=== PATIENT | female | born 1965 | race Asian ===

== ENCOUNTER 2022-11-26 15:42 | Emergency (ER) | payer BC ==
[~2022-11-26] VITALS: Ht 170.2 cm; Wt 54.4 kg
[2022-11-26 17:37] VITALS: BP 110/60
== END 2022-11-26 17:38 | disposition home or self-care (01) ==
LOC: ER 15:42
DX: S90.122A Contusion of left lesser toe(s) without damage to nail, initial encounter (principal); W22.8XXA Striking against or struck by other objects, initial encounter; Y93.89 Activity, other specified; Y92.89 Other specified places as the place of occurrence of the external cause; Y99.8 Other external cause status
CPT/HCPCS: 73660; A4663

== ENCOUNTER 2024-08-04 19:14 | Emergency (ER) | payer SELFPAY ==
[~2024-08-04] VITALS: Ht 170.2 cm; Wt 55.3 kg
[2024-08-04 21:48] VITALS: BP 110/62; TEMP 98; O2SAT 98
== END 2024-08-04 21:50 | disposition home or self-care (01) ==
LOC: ER 19:14
DX: S83.8X2A Sprain of other specified parts of left knee, initial encounter (principal); S73.192A Other sprain of left hip, initial encounter; W18.39XA Other fall on same level, initial encounter; Y93.89 Activity, other specified; Y92.89 Other specified places as the place of occurrence of the external cause; Y99.8 Other external cause status
CPT/HCPCS: 73502; A4606; A4663